=== PATIENT | female | born 1975 | race Two or more races ===

== ENCOUNTER 2024-08-25 07:20 | Inpatient (IN) | payer OTHER ==
[2024-08-19 09:56] VITALS: BP 136/86
[2024-08-19 10:06] LABS: HEMATOCRIT 43.5 % (36.0-45.00); HEMOGLOBIN 14.4 g/dL (12.0-15.00); MEAN CELL VOLUME 89.9 fL (80.00-100.00); MEAN CORPUSCULAR HEMOGLOBIN 29.9 pg (27.00-32.0); MEAN CORPUSCULAR HGB CONC 33.2 g/dl (32.0-36.0); PLATELET COUNT 396 K/uL (150-450); RED BLOOD COUNT 4.83 M/uL (4.00-6.00); RED CELL DISTRIBUTION WIDTH 14.3 % (11.5-14.5)
[2024-08-19 10:08] LABS: PH,URINE 6.5 (5.0-8.0); URINE APPEARANCE Clear; URINE BILIRRUBIN Negative (NEGATIVE); URINE BLOOD Negative; URINE COLOR Yellow; URINE GLUCOSE Negative (NEGATIVE); URINE KETONE Negative (NEGATIVE); URINE LEUKOCYTE Negative; URINE NITRATE Negative; URINE PROTEIN Trace (NEGATIVE)
[2024-08-19 10:09] LABS: URINE BACTERIA 1501.7 uL (0.0-1933); URINE RBC 4.5 uL (0.0-20.8); URINE WBC 3.6 uL (0.0-23.2)
[2024-08-19 10:35] LABS: INR 1.04; PARTIAL THROMBOPLASTIN TIME 29.1 SECONDS (22.0-34.0); PROTHROMBIN TIME 11.3 SECONDS (9.0-11.5)
[2024-08-19 10:51] LABS: ALBUMIN 4.3 gm/dL (3.4-5.0); BILIRUBIN TOTAL 0.51 mg/dL (0.3-1.2); CALCIUM 8.9 mg/dL (8.5-10.1); CREATININE SERUM 0.67 mg/dL (0.55-1.02); GFR 92.79; GLOBULINA 3.4 G/DL (2.4-3.5); POTASSIUM 3.9 mEq/L (3.5-5.1); TOTAL PROTEIN 7.7 gm/dL (6.4-8.2)
[2024-08-19 11:06] LABS: URINE CAST 0.14 uL (0.0-1.40)
[~2024-08-25] VITALS: Ht 162.6 cm; Wt 61.2 kg
[~2024-08-25 07:20] MED LIST: AMLODIPINE-OLM1 EAC2 PO; PROAIR RESPICL90 MCG IH; TOLTERODINE TART4 MG PO
[2024-08-25] MEDS ORDERED: MORPHINE SULFATE 4 MG/ML CARTRIDGE IV PRN ×2 (11:45→18:30)
[2024-08-25] MEDS ORDERED: ACETAMINOPHEN 500 MG GEL..CAP PO SCH ×2 (12:00→18:21)
[2024-08-25] MEDS ORDERED: CEFAZOLIN SODIUM 1,000 MG VIAL ONE (15:57)
[2024-08-25] MEDS ORDERED: SUGAMMADEX SODIUM 200 MG/2 ML VIAL IV ONE (18:03)
[2024-08-25] MEDS ORDERED: ENOXAPARIN SODIUM 40 MG/0.4 ML SYRINGE SUBCUTANEO SCH (18:20)
[2024-08-25] MEDS ORDERED: MORPHINE SULFATE 4 MG/ML VIAL IV ONE (19:20)
[2024-08-25] MEDS ORDERED: ONDANSETRON HCL 2 MG/ML VIAL ONE (19:35)
[2024-08-25] MEDS ORDERED: DEXAMETHASONE SODIUM PHOSP/PF 10 MG/ML VIAL ONE (20:19)
[2024-08-25] MEDS ORDERED: METOCLOPRAMIDE HCL 5 MG/ML VIAL ONE (20:19)
[2024-08-26] MEDS ORDERED: ACETAMINOPHEN 500 MG GEL..CAP PO ONE (00:43)
[2024-08-26] MEDS ORDERED: ONDANSETRON HCL 2 MG/ML VIAL ONE (00:44)
[2024-08-26] MEDS ORDERED: MORPHINE SULFATE 4 MG/ML VIAL IV ONE (00:45)
[2024-08-26 01:43] VITALS: BP 136/88; O2SAT 98
[2024-08-26 09:37] VITALS: BP 138/86; O2SAT 97
[2024-08-26] MEDS ORDERED: ENALAPRILAT DIHYDRATE 1.25 MG/ML VIAL IV PRN (11:15)
[2024-08-26] MEDS ORDERED: AMLODIPINE BESYLATE 5 MG TABLET PO NR (12:00)
[2024-08-26 16:00] VITALS: BP 134/76; O2SAT 98
[2024-08-27 08:33] VITALS: BP 147/90; O2SAT 97
[2024-08-27] MEDS ORDERED: AMLODIPINE BESYLATE 5 MG TABLET PO SCH (09:00)
== END 2024-08-27 09:42 | disposition home or self-care (01) | DRG 328 ==
LOC: CIR.AMB 07:20 → EDSTATUS 08:00 → LDR 08:00 → CIR.AMB 14:15 → SURG 20:53
PROVIDERS: ADMIT Surgery; ATTEND Surgery
PROC: 8E0W4CZ Robotic Assisted Procedure of Trunk Region, Percutaneous Endoscopic Approach (ICD-10-PCS; 2024-08-25)
PROC: 0BQT4ZZ Repair Diaphragm, Percutaneous Endoscopic Approach (ICD-10-PCS; principal; 2024-08-25 14:15)
DX: K44.9 Diaphragmatic hernia without obstruction or gangrene (principal); I10 Essential (primary) hypertension; J45.909 Unspecified asthma, uncomplicated
CPT/HCPCS: 43281; S2900